=== PATIENT | female | born 1990 | race Caucasian/White ===

== ENCOUNTER 2019-02-11 12:25 | Emergency (ER) | payer BC, OTHER ==
[~2019-02-11] VITALS: Ht 157.5 cm; Wt 66.2 kg
[~2019-02-11 12:25] MED LIST: ALLE25CA; AMOX500C PO; CORTISONE CREAM; EFFE75CA2 PO; KEFL250C; PRED10TA2; VITATAB11 PO; [UNRECOGNIZED DRUG - OTHER]
[2019-02-11 13:31] LABS: INFLUENZA A AMPLIFICATION NEGATIVE (NEGATIVE); INFLUENZA B AMPLIFICATION NEGATIVE (NEGATIVE)
[2019-02-11] MEDS ORDERED: METOCLOPRAMIDE INJ 10MG/2ML VIAL (J2765) IV ONE (15:45)
[2019-02-11] MEDS ORDERED: ACETAMINOPHEN *IV* 1,000 MG in IV 1 EA IV ONE (15:45)
[2019-02-11] MEDS ORDERED: NS 1,000 ML IV ONE ×2 (15:45→17:15)
[2019-02-11 16:06] LABS: BASO % 0.2 % (0.0-1.0); EOS # 0.1 10^3/uL (0.0-0.5); EOS % 0.5 % (0.0-3.0); HEMATOCRIT 42.7 % (36.0-47.0); HEMOGLOBIN 14.5 g/dl (12.0-15.5); LYMPH # 2.4 10^3/uL (1.5-5.0); LYMPH % 14.1 % (24.0-44.0); MEAN CORPUSCULAR HEMOGLOBIN 30.9 pg (27.0-33.0); MEAN CORPUSCULAR VOLUME 90.9 fl (80.0-96.0); MONO % 5.6 % (0.0-5.0); NEUTROPHILS # 13.7 10^3/uL (1.5-8.5); NEUTROPHILS % 79.2 % (36.0-66.0); PLATELET COUNT, AUTOMATED 255 10^3/uL (150-450); WHITE BLOOD COUNT 17.3 10^3/uL (4.0-10.0)
[2019-02-11 16:55] LABS: ALBUMIN 3.9 GM/DL (3.2-5.2); ALT/SGPT 15 U/L (12-78); BILIRUBIN,TOTAL 0.7 MG/DL (0.2-1.0); BLOOD UREA NITROGEN 9 MG/DL (7-18); C REACTIVE PROTEIN QUANTITATIV < 0.30 MG/DL (0.00-0.30); CALCIUM LEVEL 8.8 MG/DL (8.5-10.1); CARBON DIOXIDE LEVEL 25 MEQ/L (21-32); CHLORIDE LEVEL 105 MEQ/L (98-107); CREATININE FOR GFR 0.65 MG/DL (0.55-1.30); GLOMERULAR FILTRATION RATE > 60.0 (>60); GLUCOSE, FASTING 71 MG/DL (70-100); HCG, SERUM QUANTITATIVE 52098 MIU/ML; POTASSIUM SERUM 4.1 MEQ/L (3.5-5.1); SODIUM LEVEL 138 MEQ/L (136-145); TOTAL PROTEIN 7.3 GM/DL (6.4-8.2)
--- NOTE | 2019-02-11 17:14 | REP ---
HISTORY: Productive cough. COMPARISON: 08/20/2017 FINDINGS: The superior mediastinal structures are midline. The cardiac silhouette is unremarkable in size, shape and position. The diaphragmatic surfaces of the lungs are regular and the costophrenic angles are clear. The pulmonary jerez are clear. The imaged osseous structures are intact. IMPRESSION: There is no acute cardiopulmonary disease. No change from the prior exam. Electronically Signed by Jeevan Childs DO 02/12/2019 02:33 P
--- NOTE | 2019-02-11 17:37 | REPVR ---
PROCEDURE INFORMATION: Exam: US Pelvis Limited, Transabdominal Exam date and time: 02/11/2019 5:19 PM Clinical history: 28 years old, female; Other: Rlq pain; Additional info: +preg, rlq pain, ? appe TECHNIQUE: Imaging protocol: Real-time transabdominal pelvic ultrasound with image documentation. Limited exam. COMPARISON: US PELVIC NON-OB COMPLETE 09/03/2013 4:15 PM FINDINGS: Appendix: Normal appearing appendix demonstrated measuring 4.8 mm in maximum thickness. No free fluid or abnormality demonstrated in the right lower quadrant. IMPRESSION: Normal study of the appendix. Electronically signed by: Stephon Babcock On 02/11/2019 17:37:20 PM
--- NOTE | 2019-02-11 17:39 | REP ---
HISTORY: Abdominal pain, particularly right lower quadrant. PERTINENT PRIORS: None. Transvesical imaging was obtained. Within the uterus there is an anechoic structure with increased echo surrounding it consistent with a decidual reaction. The gestational sac contains echogenic material consistent with a pole, the mean crown length measurement of which is consistent with a 7 week 0 day gestational age. Based on that the estimated date of delivery is 09/30/2019. Doppler interrogation of the pole shows a heart rate of 139 beats per minute. There is a well defined tiny anechoic structure within the gestational sac consistent with a yolk sac. Evaluation of the maternal adnexal spaces showed no abnormalities. A 3 cm sized anechoic structure was seen in the left ovary consistent with a corpus luteum cyst. No chorionic or subchorionic abnormality was noted. IMPRESSION: Early OB ultrasound as described above. Electronically Signed by Jeevan Childs DO 02/12/2019 02:33 P
[2019-02-11] MEDS ORDERED: REGL10TA6 PO (18:11)
[2019-02-11] MEDS ORDERED: AMOX875T PO (18:11)
[2019-02-11 18:25] VITALS: BP 118/78
== END 2019-02-11 18:28 | disposition home or self-care (01) ==
LOC: M ED 12:25
DX: O99.89 Other specified diseases and conditions complicating pregnancy, childbirth and the puerperium (principal); H66.92 Otitis media, unspecified, left ear; O21.0 Mild hyperemesis gravidarum; O99.342 Other mental disorders complicating pregnancy, second trimester; F33.9 Major depressive disorder, recurrent, unspecified; O99.332 Smoking (tobacco) complicating pregnancy, second trimester; F17.210 Nicotine dependence, cigarettes, uncomplicated; Z3A.01 Less than 8 weeks gestation of pregnancy
CPT/HCPCS: 36415; 71046; 76857; 80053; 81001; 84702; 85025; 86140; 87502; 93976; 96361; 96365; 96375; 99284; J0131; J2765

== ENCOUNTER → 2019-03-21 | Outpatient (CLI) | payer BC ==
[~2019-03-21] MED LIST changes: +AMOX875T PO; +REGL10TA6 PO
[2019-03-21 16:40] LABS: BASO % 0.2 % (0.0-1.0); EOS # 0.1 10^3/uL (0.0-0.5); EOS % 1.3 % (0.0-3.0); HEMATOCRIT 41.9 % (36.0-47.0); HEMOGLOBIN 13.6 g/dl (12.0-15.5); LYMPH # 1.9 10^3/uL (1.5-5.0); LYMPH % 18.2 % (24.0-44.0); MEAN CORPUSCULAR HEMOGLOBIN 30.2 pg (27.0-33.0); MEAN CORPUSCULAR HGB CONC 32.5 g/dl (32.0-36.5); MEAN CORPUSCULAR VOLUME 93.1 fl (80.0-96.0); MONO # 0.7 10^3/uL (0.0-0.8); MONO % 6.3 % (0.0-5.0); NEUTROPHILS # 7.6 10^3/uL (1.5-8.5); NEUTROPHILS % 73.3 % (36.0-66.0); PLATELET COUNT, AUTOMATED 240 10^3/uL (150-450); WHITE BLOOD COUNT 10.4 10^3/uL (4.0-10.0)
[2019-03-21 18:06] LABS: CHLAMYDIA DNA AMPLIFICATION NEGATIVE (NEGATIVE); GC DNA AMPLIFICATION NEGATIVE (NEGATIVE)
[2019-03-23 14:03] LABS: HIV 1&2 SCREEN CENTAUR NEGATIVE (NEGATIVE); RUBELLA IgG QUALITATIVE IMMUNE (IMMUNE)
== END ==
LOC: M WUC 12:53
PROVIDERS: ATTEND Advanced Practice Midwife
DX: Z36.89 Encounter for other specified antenatal screening (principal)

== ENCOUNTER → 2019-05-04 | Outpatient (CLI) | payer BC ==
--- NOTE | 2019-05-04 13:08 | REP ---
Clinical: Anatomical evaluation. Comparison: None . Findings: Examination demonstrates a single live intrauterine in breech presentation. motion is identified by technologist. Placenta is noted posterior and grade zero without evidence for placenta previa or abruption. Amniotic fluid volume is normal. Cervix measures 3.3 cm in length and appears closed. No evidence for nuchal cord. Gestational age by LMP 18 weeks 5 days with VILMA 09/30/2019 . Gestational age by current measurements 18 weeks 6 days with VILMA 09/29/2019 . FHR equals 150 beats per minute. BPD 3.8 cm 17 weeks 5 days HC 15.6 cm 18 weeks 4 days AC 13.1 cm 18 weeks 4 days FL 3.1 cm 19 weeks 5 days HL 3.0 cm 20 weeks 2 days HC/AC ratio 1.19 Estimated weight 269 grams ( 57th percentile). Anatomical assessment demonstrates normal structures including cranium, choroid plexus, cavum, cerebellum/posterior fossa, facial features, lungs, diaphragm, stomach, cord insertion/three-vessel cord, kidneys/bladder, spine, and extremities. Impression: 1. Single live intrauterine in breech presentation demonstrating appropriate interval growth. 2. Limited evaluation of the heart/ventricular outflow tracts noted. Remainder of the anatomical assessment is complete and normal. Electronically Signed by Triston Nails MD 05/04/2019 01:00 P
== END ==
LOC: M RAD 12:11
PROVIDERS: ATTEND Advanced Practice Midwife
DX: Z34.90 Encounter for supervision of normal pregnancy, unspecified, unspecified trimester (principal); Z3A.18 18 weeks gestation of pregnancy

== ENCOUNTER → 2019-05-15 | Outpatient (REF) | payer BC ==
[2019-05-15 16:18] LABS: CHLAMYDIA DNA AMPLIFICATION NEGATIVE (NEGATIVE); GC DNA AMPLIFICATION NEGATIVE (NEGATIVE)
== END ==
LOC: M LAB REF 14:06
PROVIDERS: ATTEND Advanced Practice Midwife
DX: R10.2 Pelvic and perineal pain (principal)

== ENCOUNTER → 2019-05-15 | Outpatient (REF) | payer BC | LOC: M SFHCWAGY 13:49 | PROVIDERS: ATTEND Advanced Practice Midwife | DX: R10.2 Pelvic and perineal pain (principal) ==

== ENCOUNTER → 2019-05-22 | Outpatient (CLI) | payer BC ==
--- NOTE | 2019-05-22 11:25 | REP ---
OB ULTRASOUND: Real-time sonographic evaluation of the gravid uterus is performed. There is a single intrauterine gestation. The estimated gestational age is 21 weeks 2 days EDC 09/30/2019. Today's measurements indicate appropriate growth. Biometry and Growth: BPD 51 mm = 21 weeks 3 days, 53rd percentile HC 188 mm = 21 weeks 1 day, 45th percentile AC 159 mm = 21 weeks 0 days, 44th percentile FL 36 mm = 21 weeks 2 days, 50th percentile HC/AC ratio 1.18 within normal range. Estimated weight 403 grams, 41st percentile. SEEN/GROSSLY UNREMARKABLE Lateral ventricles Yes Posterior fossa Yes Upper lip Yes Four-chamber heart Yes LVOT Yes RVOT Yes Stomach Yes Cord insertion Yes Three vessel cord Yes Kidneys Yes Bladder Yes Spine Yes Cervical length: Closed and measures 4.7 cm in length. heart rate: 145 beats per minute. position: Vertex. Placenta: Posterior and grade 0 with no previa or abruption. Amniotic fluid: Within normal limits. Electronically Signed by Colby Amaya MD 05/23/2019 03:13 P
== END ==
LOC: M RAD 09:47
PROVIDERS: ATTEND Advanced Practice Midwife
DX: Z34.92 Encounter for supervision of normal pregnancy, unspecified, second trimester (principal)

== ENCOUNTER → 2019-06-26 | Outpatient (CLI) | payer BC, MEDICAID ==
--- NOTE | 2019-06-26 14:16 | REP ---
Clinical: Anatomical evaluation. Comparison: 05/22/2019 . Findings: Examination demonstrates a single live intrauterine in cephalic presentation. motion is identified by technologist. Placenta is noted posterior and grade zero without evidence for placenta previa or abruption. Amniotic fluid volume is normal. Cervix measures 4.1 cm in length and appears closed. No evidence for nuchal cord. Gestational age by first US 26 weeks 2 days with VILMA 09/30/2019 . Gestational age by current measurements 26 weeks 6 days with VILMA 09/26/2019 . FHR equals 139 beats per minute. Estimated weight 1031 grams ( 65th percentile). Anatomical assessment demonstrates normal structures including cranium, choroid plexus, cavum, cerebellum/posterior fossa, facial features, lungs, four-chamber heart/ventricular outflow tracts, diaphragm, stomach, cord insertion/three-vessel cord, kidneys/bladder, spine, and extremities. Impression: Single live intrauterine in cephalic presentation demonstrating appropriate interval growth. Anatomical assessment is complete and normal. No gross abnormalities are identified. Electronically Signed by Triston Nails MD 06/26/2019 02:09 P
[2019-06-26 15:48] LABS: HEMATOCRIT 36.3 % (36.0-47.0); HEMOGLOBIN 12.2 g/dl (12.0-15.5); MEAN CORPUSCULAR HEMOGLOBIN 31.8 pg (27.0-33.0); MEAN CORPUSCULAR HGB CONC 33.6 g/dl (32.0-36.5); MEAN CORPUSCULAR VOLUME 94.5 fl (80.0-96.0); PLATELET COUNT, AUTOMATED 212 10^3/uL (150-450); RED BLOOD COUNT 3.84 10^6/uL (4.00-5.40); WHITE BLOOD COUNT 14.1 10^3/uL (4.0-10.0)
== END ==
LOC: M RAD 12:55
PROVIDERS: ATTEND Advanced Practice Midwife
DX: Z34.03 Encounter for supervision of normal first pregnancy, third trimester (principal); Z3A.26 26 weeks gestation of pregnancy

== ENCOUNTER → 2019-09-10 | Outpatient (REF) | payer BC, MEDICAID | LOC: M SFHCWAGY 17:00 | PROVIDERS: ATTEND Advanced Practice Midwife | DX: Z34.03 Encounter for supervision of normal first pregnancy, third trimester (principal) ==

== ENCOUNTER → 2019-09-17 | Outpatient (CLI) | payer BC, MEDICAID | LOC: M LAB 12:33 | PROVIDERS: ATTEND Advanced Practice Midwife | DX: Z36.89 Encounter for other specified antenatal screening (principal); Z3A.00 Weeks of gestation of pregnancy not specified ==

== ENCOUNTER 2019-10-03 04:16 | Inpatient (IN) | payer BC, MEDICAID ==
[~2019-10-03] VITALS: Ht 157.5 cm; Wt 93.6 kg
[2019-10-03] VITALS (43 sets, daily range): BP systolic 87–159; BP diastolic 47–95
[2019-10-03] MEDS ORDERED: LACTATED RINGER'S 1000 ML IV STA (04:53)
[2019-10-03] MEDS ORDERED: LR 1,000 ML IV SCH (04:53)
[2019-10-03] MEDS ORDERED: FENTANYL 2MCG/ML ROPIVACAINE 0.2% IN 0.9% NACL 100ML IVBAG As Ordered ONE (04:58)
[2019-10-03 05:02] LABS: HEMATOCRIT 37.8 % (36.0-47.0); HEMOGLOBIN 12.6 g/dl (12.0-15.5); MEAN CORPUSCULAR HEMOGLOBIN 29.7 pg (27.0-33.0); MEAN CORPUSCULAR HGB CONC 33.3 g/dl (32.0-36.5); MEAN CORPUSCULAR VOLUME 89.2 fl (80.0-96.0); PLATELET COUNT, AUTOMATED 225 10^3/uL (150-450); RED BLOOD COUNT 4.24 10^6/uL (4.00-5.40); WHITE BLOOD COUNT 15.6 10^3/uL (4.0-10.0)
[2019-10-03] MEDS ORDERED: EFFE37.5 PO (05:04)
--- NOTE | 2019-10-03 05:08 | HPEPDOC ---
Obstetrical History & Physical General Date of Admission October 03, 2019 at 04:54 History of Present Illness Chief Complaint: Contractions, term, LOF, term Information Provided By: Patient Age: 28 : 1 Term: 0 Pre-term: 0 Abortions: 0 Livin Care Care: Good Care Dating Final EDC: September 30, 2019 Final EDC by: 1st trimester (US) EGA at Admission: 40 (+3) Antepartum Course Height (inches): 62 Pre- weight (lbs.): 156 Admission Weight (lbs.): 206 Past Medical History Past Obstetrical History : Past Obstetrical History: Primgravida CLINICAL ACCOUNT LIAISON History: No pertinent history Past Medical History Surgical History: Other (adenoids) Family History Significant Family History: No pertinent family hx Social History Marital Status: Single Family situation: Spouse/partner home Psychosocial History: Anxiety, Depression * Smoker: current smoker Alcohol: Denies Drugs: denies Abuse Violence Screening Have you been hit/kicked/slapp: No Have you been sexually assault: No Imunizations Tdap status: current Allergies Coded Allergies: nickel (Verified Allergy, Unknown, rash, 02/11/19) Medications Scheduled Amoxicillin (Amoxicillin) 875 Mg Tablet, 1 TAB PO BID Scheduled PRN Metoclopramide HCl (Reglan) 10 Mg Tablet, 10 MG PO Q6H PRN for NAUSEA Physical Examination Physical Examination GENERAL: Alert and oriented times three.Appears uncomfortable BREAST: . ABDOMEN: Gravid and non-tender to touch. FETUS: Is vertex (VTX) by sterile vaginal examination (SVE), fetus is vertex (VTX) by Geo. HEART RATE: Regular rate and rhythm. LUNGS: Clear to auscultation (CTA). EXTREMITIES: No edema. No clonus. Deep tendon reflexes (DTRs) + 2. Vital Signs/I&O Vital Signs Date Time Temp Pulse Resp B/P (MAP) Pulse Ox O2 Delivery O2 Flow Rate FiO2 10/03/19 04:30 97.3 18 Pertinent Laboratoy Data Blood Type: A- RBC Antibody Screen: Negative HIV: Negative Hepatitis B: Negative Hepatitis C: Negative Rapid Plasma Reagin: Nonreactive Rubella: Immune Chlamydia/Gonorrhea: Negative Group B Streptococcus: Negative Quad Screen Test: Declined Glucose Tolerance Test: 129 Anatomy Ultrasound Ultrasound Date: May 04, 2019 Placenta Location: Posterior Normal Anatomy: Yes Placenta Previa: No Estimated Weight (grams): 269 (57%) Other Ultrasounds 02/11/2019 7w0d 05/22/2019 21w2d 403gm 41% 06/26/2019 26w2d 1031gm 65% Steroid Therapy Steroid Therapy: No Vaginal Examination Dilation: 4 cm (-5) Effacement: 90% Station: 0 Cervical Consistency: Soft Cervical Position: Middle Presentation: Cephalic presentation Assessment Heart Rate (FHR): 135 Variability: Moderate Accelerations: Positive Decelerations: None Tocometer Contractions: Yes Frequency: irregular, every 3-7 min. Duration: less than 60 seconds Strength: palpated as mild Assessment/Plan Assessment Fozia is a 28-year-old (G)1 para (P)0-0-0-0 at 40+3 weeks by 10-week ultrasound. Presents to Labor and Delivery (L&D) with reports of LOF 0100, clear followed by onset UC. Denies bleeding. Reports good movement. Plan Admit and orient. 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 Diet: clear liquids. Group B Streptococcus (GBS) negative. Labs and intravenous (IV) per unit protocol. Counseled on Pitocin and induction of labor (IOL). Lactated Ringers (LR): Bolus 500 mL, then at 125 mL/hr. Requesting epidural Anticipate normal spontaneous delivery (). C-S as appropriate. Judy Medina CNM October 03, 2019 05:08
[2019-10-03] MEDS: FENTANYL/ROPIVACAINE/NACL BAG 100 ML EPIDURAL SCH ×2 (06:25→13:22)
[2019-10-03] MEDS ORDERED: NALOXONE INJ 0.4MG/1ML VIAL (J2310 PER 1MG) IV PRN (06:30)
[2019-10-03] MEDS ORDERED: diphenhydrAMINE 50MG/ML VIAL (J1200) IV PRN (06:30)
[2019-10-03] MEDS ORDERED: REFRIGERATOR IV KEYS XX PRN (06:30)
[2019-10-03] MEDS ORDERED: LACTATED RINGER'S 1000 ML IV PRN (06:30)
[2019-10-03] MEDS ORDERED: EPIDURAL COMMENT XX SCH (06:30)
[2019-10-03] MEDS ORDERED: EPIDURAL/PCA KEYS XX PRN (06:30)
[2019-10-03] MEDS ORDERED: ONDANSETRON 4MG/2ML VIAL IV PRN (06:30)
[2019-10-03] MEDS ORDERED: OXYTOCIN DRIP 30 UNITS in IV 1 EA IV SCH (07:15)
[2019-10-03] MEDS: ePHEDrine SULFATE 25 MG/5 ML(5MG/ML) SYRINGE IV PRN ×3 (08:05→12:42)
[2019-10-03] MEDS: VENLAFAXINE **XR** 37.5 MG CAPSULE PO SCH (09:00)
[2019-10-03] MEDS ORDERED: MEASLES,MUMPS,RUBELLA VACCINE INJ (MMR-II) (90707) SC SCH (19:00)
[2019-10-03] MEDS ORDERED: METHYLERGONOVINE MALEATE 0.2 MG TAB PO PRN (19:00)
[2019-10-03] MEDS ORDERED: ACETAMINOPHEN TAB 650MG DOSE (2X325MG) PO PRN (19:00)
[2019-10-03] MEDS ORDERED: DIBUCAINE 1% OINTMENT 30GM TOP PRN (19:00)
[2019-10-03] MEDS ORDERED: RHOGAM 300 MCG (1500 IU) INJ (J2790) IM SCH (19:00)
[2019-10-03] MEDS ORDERED: DOCUSATE SODIUM 100 MG CAP PO PRN (19:00)
[2019-10-03] MEDS ORDERED: OXYTOCIN DRIP 30 UNITS in IV 1 EA IV ONE (19:00)
[2019-10-03] MEDS ORDERED: IBUPROFEN 600 MG TAB PO PRN (19:00)
[2019-10-03] MEDS ORDERED: ACETAMINOPHEN 500 MG TAB PO PRN (19:00)
[2019-10-03] MEDS: IBUPROFEN 800 MG TAB PO PRN (20:24)
[2019-10-04] MEDS: IBUPROFEN 800 MG TAB PO PRN ×2 (05:51→20:22)
[2019-10-04 06:39] VITALS: BP 116/54
[2019-10-04] MEDS: VENLAFAXINE **XR** 37.5 MG CAPSULE PO SCH (09:00)
[2019-10-04] MEDS: PRENATAL VITAMINS CHEWABLE TABLET PO SCH (10:04)
[2019-10-04 18:00] VITALS: BP 117/81
[2019-10-05 06:43] VITALS: BP_SYST 115; BP_SYST 119; BP_DIAS 60; BP_DIAS 77
[2019-10-05] MEDS ORDERED: IBUP80TA PO (08:50)
[2019-10-05] MEDS ORDERED: ACET-683 PO (08:50)
[2019-10-05] MEDS: VENLAFAXINE **XR** 37.5 MG CAPSULE PO SCH (10:49)
[2019-10-05] MEDS: PRENATAL VITAMINS CHEWABLE TABLET PO SCH (10:49)
--- NOTE | 2019-10-07 18:13 | DN ---
DATE: 10/03/2019 PREDELIVERY DIAGNOSIS: Term , labor. POSTDELIVERY DIAGNOSIS: Delivered. PROCEDURE: Spontaneous vaginal delivery. COSTING MANAGER: Silvino Riggs MD ANESTHESIA: Epidural. ESTIMATED BLOOD LOSS: 300 mL. FINDINGS: A 7-pound, 2-ounce male infant, scores 8 and 9. DELIVERY SUMMARY: After a one-hour second stage, the patient had spontaneous delivery of a 7-pound, 2-ounce male infant under epidural anesthesia. There was no nuchal cord. The shoulders delivered with ease. The was handed to the mother and cried quickly. The cord was doubly clamped and cut. The placenta delivered spontaneously and appeared to be intact. The patient received IV pitocin immediately after delivery of the placenta. There were no vaginal lacerations present. Sponge counts were correct.
== END 2019-10-05 12:35 | disposition home or self-care (01) | DRG 560 ==
LOC: M LDO 04:16 → M LDI 04:54 → M OBS 20:11
PROVIDERS: ADMIT Advanced Practice Midwife; ATTEND Advanced Practice Midwife
PROC: 10E0XZZ Delivery of Products of Conception, External Approach (ICD-10-PCS; principal; 2019-10-03)
DX: O99.334 Smoking (tobacco) complicating childbirth (principal); F17.210 Nicotine dependence, cigarettes, uncomplicated; Z3A.40 40 weeks gestation of pregnancy; Z37.0 Single live birth

== ENCOUNTER → 2020-08-30 | Outpatient (REF) | payer BC, MEDICAID ==
[~2020-08-30] MED LIST changes: +ACET-683 PO; +EFFE37.5 PO; +IBUP80TA PO
== END ==
LOC: M SFHCWAGY 08:24
PROVIDERS: ATTEND Advanced Practice Midwife
DX: Z12.4 Encounter for screening for malignant neoplasm of cervix (principal)

== ENCOUNTER 2021-01-16 18:41 | Emergency (ER) | payer BC, MEDICAID ==
[~2021-01-16] VITALS: Ht 157.5 cm; Wt 93.2 kg
[2021-01-16 19:15] LABS: BASO % 0.3 % (0.0-1.0); EOS # 0.2 10^3/uL (0.0-0.5); EOS % 2.3 % (0.0-3.0); HEMOGLOBIN 14.4 g/dl (12.0-15.5); LYMPH # 2.7 10^3/uL (1.5-5.0); LYMPH % 34.5 % (24.0-44.0); MEAN CORPUSCULAR HEMOGLOBIN 29.4 pg (27.0-33.0); MEAN CORPUSCULAR HGB CONC 33.5 g/dl (32.0-36.5); MEAN CORPUSCULAR VOLUME 87.9 fl (80.0-96.0); MONO # 0.7 10^3/uL (0.0-0.8); MONO % 8.6 % (2.0-8.0); NEUTROPHILS # 4.2 10^3/uL (1.5-8.5); NEUTROPHILS % 54.2 % (36.0-66.0); PLATELET COUNT, AUTOMATED 277 10^3/uL (150-450); RED BLOOD COUNT 4.89 10^6/uL (4.00-5.40); WHITE BLOOD COUNT 7.7 10^3/uL (4.0-10.0)
--- NOTE | 2021-01-16 19:34 | REPVR ---
PROCEDURE INFORMATION: Exam: XR Chest Exam date and time: 01/16/2021 6:58 PM Age: 30 years old Clinical indication: Cough and fever and shortness of breath; Additional info: Dyspnea/cough, covid positive TECHNIQUE: Imaging protocol: XR of the chest. Views: 1 view. COMPARISON: 1. CR Chest, 2 view PA, Lat 2019-02-11 16:21 2. CR Chest, 2 view PA, Lat 2017-08-20 13:30 FINDINGS: Lungs: Minimal peripheral hazy lung opacities. Pleural spaces: Unremarkable. No pleural effusion. No pneumothorax. Heart/Mediastinum: Unremarkable. No cardiomegaly. Bones/joints: Unremarkable. IMPRESSION: Minimal peripheral hazy lung opacities. Electronically signed by: Surinder Kate On 01/16/2021 19:34:07 PM
[2021-01-16 20:21] LABS: ALBUMIN 3.4 GM/DL (3.2-5.2); ALT/SGPT 28 U/L (12-78); BILIRUBIN,DIRECT < 0.1 MG/DL (0.0-0.2); BILIRUBIN,TOTAL 0.3 MG/DL (0.2-1.0); BLOOD UREA NITROGEN 13 MG/DL (7-18); CALCIUM LEVEL 9.1 MG/DL (8.5-10.1); CARBON DIOXIDE LEVEL 22 MEQ/L (21-32); CHLORIDE LEVEL 111 MEQ/L (98-107); CK-MB VALUE MASS 2.4 NG/ML (<3.6); CPK CREATINE PHOSPHOKINASE 138 U/L (26-192); CREATININE FOR GFR 0.68 MG/DL (0.55-1.30); GLOMERULAR FILTRATION RATE > 60.0 (>60); GLUCOSE, FASTING 102 MG/DL (70-100); MB/CK RELATIVE INDEX 1.74 (< OR =4); NT-PRO BNP 45 PG/ML (<125); POTASSIUM SERUM 4.5 MEQ/L (3.5-5.1); SODIUM LEVEL 140 MEQ/L (136-145); TOTAL PROTEIN 7.2 GM/DL (6.4-8.2); TROPONIN I < 0.02 NG/ML (< 0.10)
[2021-01-16] MEDS ORDERED: ISOVUE-370 76% 100ML VIAL As Ordered ONE (20:25)
--- NOTE | 2021-01-16 21:12 | REPVR ---
PROCEDURE INFORMATION: Exam: CTA Chest With Contrast Exam date and time: 01/16/2021 8:10 PM Age: 30 years old Clinical indication: Shortness of breath; Additional info: Sob/covid, R/O pe TECHNIQUE: Imaging protocol: Computed tomographic angiography of the chest with contrast. 3D rendering (Not supervised by radiologist): MIP and/or 3D reconstructed images were created by the technologist. Radiation optimization: All CT scans at this facility use at least one of these dose optimization techniques: automated exposure control; mA and/or kV adjustment per patient size (includes targeted exams where dose is matched to clinical indication); or iterative reconstruction. Contrast material: ISOVUE 370; Contrast volume: 75 ml; Contrast route: INTRAVENOUS (IV); COMPARISON: CR PORTABLE CHEST X-RAY 01/16/2021 6:50 PM FINDINGS: Pulmonary arteries: The main pulmonary artery measures 24 mm. No pulmonary embolism is identified. Aorta: The ascending thoracic aorta measures 26 mm. Lungs: Scattered bilateral focal pulmonary infiltrates. Pleural spaces: Unremarkable. No pneumothorax. No pleural effusion. Heart: Unremarkable. No cardiomegaly. No pericardial effusion. Mediastinal space: There is soft tissue conforming to the anterior mediastinum consistent with residual thymic tissue. Lymph nodes: Unremarkable. No enlarged lymph nodes. Bones/joints: Unremarkable. No acute fracture. Soft tissues: Unremarkable. IMPRESSION: 1. Scattered bilateral focal pulmonary infiltrates consistent with pneumonia. 2. Otherwise negative CTA chest. No pulmonary embolism is identified. Electronically signed by: Dustin Parra On 01/16/2021 21:11:32 PM
[2021-01-16 22:16] VITALS: BP 117/71
--- NOTE | 2021-01-17 17:51 | ECGEPIP ---
[facility] - ED Test Date: 2021-01-16 Pat Name: MICH ARZOLA Department: Room: - Gender: Female Email Deployment Specialist: MARCELL : 1990 Requested By: Ania Barrett Order Number: [id number] Reading MD: Ania Barrett Measurements Intervals Foley Rate: 77 P: 75 TN: 140 QRS: 80 QRSD: 80 T: 42 QT: 374 QTc: 423 Interpretive Statements Normal sinus rhythm with sinus arrhythmia No prior Electronically Signed on 01-17-2021 17:51:42 EDT by Ania Barrett
== END 2021-01-16 22:37 | disposition home or self-care (01) ==
LOC: M ED 18:41
DX: U07.1 COVID-19 (principal); G43.909 Migraine, unspecified, not intractable, without status migrainosus; Z91.048 Other nonmedicinal substance allergy status; F17.210 Nicotine dependence, cigarettes, uncomplicated
CPT/HCPCS: 36415; 71045; 71275; 80048; 80076; 82550; 82553; 83880; 84443; 84484; 85025; 93005; 93041; 94760; 99285; Q9967

== ENCOUNTER 2023-04-12 12:05 | Emergency (ER) | payer BC ==
[~2023-04-12] VITALS: Ht 157.5 cm; Wt 81.8 kg
[~2023-04-12 12:05] MED LIST changes: -EFFE37.5 PO; +EFFE37.52 PO
[2023-04-12] MEDS ORDERED: diazePAM 5MG TABLET PO ONE (15:10)
[2023-04-12] MEDS ORDERED: LIDOCAINE 5% (LIDODERM) PATCH TD ONE (15:10)
[2023-04-12] MEDS ORDERED: KETOROLAC 30 MG/ML 1ML VIAL IM ONE (15:10)
[2023-04-12] MEDS ORDERED: METH-1164 PO (16:11)
[2023-04-12] MEDS ORDERED: MEDR4PAK PO (16:11)
[2023-04-12] MEDS ORDERED: KETO10TAB PO (16:11)
[2023-04-12 16:21] VITALS: BP 126/84; TEMP 98.1; O2SAT 99
== END 2023-04-12 16:23 | disposition home or self-care (01) ==
LOC: M ED 12:05
DX: G89.29 Other chronic pain (principal); M54.50 Low back pain, unspecified; F17.200 Nicotine dependence, unspecified, uncomplicated; Z79.899 Other long term (current) drug therapy
CPT/HCPCS: 96372; 99283; J1100; J1885

== ENCOUNTER → 2023-04-26 | Outpatient (CLI) | payer BC ==
[~2023-04-26] MED LIST changes: +KETO10TAB PO; +MEDR4PAK PO; +METH-1164 PO
== END ==
LOC: M SOG 14:55
PROVIDERS: ATTEND Physician Assistant
DX: M54.50 Low back pain, unspecified (principal)

== ENCOUNTER → 2023-05-02 | Outpatient (CLI) | payer BC ==
[2023-05-02 15:36] LABS: HIV 1&2 SCREEN NEGATIVE (NEGATIVE)
[2023-05-02 15:42] LABS: HEPATITIS C VIRUS ABY INDEX 0.11 INDEX (<0.8)
[2023-05-02 15:43] LABS: HEPATITIS B CORE ANTIBODY IGM NEGATIVE (NEGATIVE)
== END ==
LOC: M PLALAB 09:55
PROVIDERS: ATTEND Nurse Practitioner Family
DX: Z11.3 Encounter for screening for infections with a predominantly sexual mode of transmission (principal)